=== PATIENT | female | born 1960 | race Caucasian/White ===

== ENCOUNTER → 2024-02-18 14:10 | Outpatient (CLI) | payer OTHER, SELFPAY ==
--- NOTE | 2024-02-18 14:12 | DI.RAD.S_ITS ---
PROCEDURE: XR CERVICAL SPINE 4V OR 5V INDICATIONS: NECK PAIN TECHNIQUE: 5 views of the cervical spine acquired. COMPARISON: None. FINDINGS: Bones: No fractures or dislocations to the T1 level. Oblique images demonstrate no bony foraminal stenoses. Straightening of the normal cervical lordosis. Hypertrophic arthropathy disc space narrowing lower cervical spine. Craniovertebral relationships are normal. Oblique images show multilevel foraminal stenosis particularly at C5-6 there is moderate bilateral foraminal stenosis Soft tissues: No prevertebral soft tissue swelling. IMPRESSION: Multilevel degenerative disc disease and arthropathy associated with bilateral moderate C5-6 foraminal stenosis Approved by: Ganga Keller M.D. on 02/18/2024 at 16:04
--- NOTE | 2024-02-18 14:12 | DI.RAD.S_ITS ---
PROCEDURE: XR LUMBAR SPINE MIN 4V INDICATIONS: BACK PAIN TECHNIQUE: 5 views of the lumbar spine were acquired, including bilateral oblique views. COMPARISON: None. FINDINGS: Bones: 5 nonrib-bearing vertebrae are present. There is normal bony alignment. No vertebral body compression fractures. No suspicious bony lesions. Soft tissues: Overlying bowel gas pattern is normal. No suspicious soft tissue calcifications. Oblique images: No pars defects. IMPRESSION: Hypertrophic arthropathy in lower lumbar spine. No fracture or malalignment. Approved by: Ganga Keller M.D. on 02/18/2024 at 16:00
== END ==
PROVIDERS: PCP Family Medicine; Referring Provider Physical Medicine & Rehabilitation; Visit Provider Physical Medicine & Rehabilitation
DX: M47.812 Spondylosis without myelopathy or radiculopathy, cervical region (principal); M48.02 Spinal stenosis, cervical region; M50.30 Other cervical disc degeneration, unspecified cervical region; M47.816 Spondylosis without myelopathy or radiculopathy, lumbar region; M54.9 Dorsalgia, unspecified
CPT/HCPCS: 72050; 72110